=== PATIENT | male | born 1995 | race Caucasian/White ===

== ENCOUNTER → 2016-08-06 | Outpatient (REF) | payer BC | LOC: M LAB REF 09:31 | PROVIDERS: ATTEND Physician Assistant | DX: J02.9 Acute pharyngitis, unspecified (principal) ==

== ENCOUNTER 2019-07-01 11:49 | Emergency (ER) | payer OTHER, BC ==
[~2019-07-01] VITALS: Ht 175.3 cm; Wt 111.0 kg
[2019-07-01] MEDS ORDERED: IBUPROFEN 800 MG TAB PO ONE (14:00)
[2019-07-01] MEDS ORDERED: CYCL5TAB PO (14:00)
[2019-07-01] MEDS ORDERED: LIDOCAINE 5% (LIDODERM) PATCH TD ONE (14:00)
[2019-07-01 14:39] VITALS: BP 138/78
[2019-07-01] MEDS ORDERED: **NOTE PATIENT COMMENT** MISC XX SCH (21:00)
== END 2019-07-01 14:42 | disposition home or self-care (01) ==
LOC: M ED 11:49
DX: S39.012A Strain of muscle, fascia and tendon of lower back, initial encounter (principal); M54.16 Radiculopathy, lumbar region; M62.830 Muscle spasm of back; X50.1XXA Overexertion from prolonged static or awkward postures, initial encounter; Y92.128 Other place in nursing home as the place of occurrence of the external cause; Y93.89 Activity, other specified; Y99.0 Civilian activity done for income or pay; K21.9 Gastro-esophageal reflux disease without esophagitis; Z88.8 Allergy status to other drugs, medicaments and biological substances

== ENCOUNTER → 2020-01-22 | Outpatient (CLI) | payer SELFPAY ==
[~2020-01-22] MED LIST: CYCL5TAB PO
== END ==
LOC: M LABSMTC 14:54
PROVIDERS: ATTEND Family Medicine
DX: Z20.828 Contact with and (suspected) exposure to other viral communicable diseases (principal)

== ENCOUNTER 2020-06-29 16:03 | Emergency (ER) | payer OTHER, BC ==
[~2020-06-29] VITALS: Ht 175.3 cm; Wt 109.9 kg
[2020-06-29] MEDS ORDERED: KETO10TAB PO (19:40)
[2020-06-29] MEDS ORDERED: CYCL-707 PO (19:40)
[2020-06-29 20:09] VITALS: BP 121/79
== END 2020-06-29 20:13 | disposition home or self-care (01) ==
LOC: M ED 16:03
DX: S39.012A Strain of muscle, fascia and tendon of lower back, initial encounter (principal); M62.830 Muscle spasm of back; X50.0XXA Overexertion from strenuous movement or load, initial encounter; Y92.129 Unspecified place in nursing home as the place of occurrence of the external cause; Y93.F2 Activity, caregiving, lifting; Y99.0 Civilian activity done for income or pay; Z88.0 Allergy status to penicillin

== ENCOUNTER → 2023-06-13 | Outpatient (REF) | payer OTHER, BC ==
[~2023-06-13] MED LIST changes: +CYCL-707 PO; +KETO10TAB PO
[2023-06-13 14:50] LABS: HEMOGLOBIN A1c 5.3 % (4.0-6.0)
[2023-06-13 15:07] LABS: ALBUMIN 3.7 G/DL (3.2-5.2); ALKALINE PHOSPHATASE 109 U/L (46-116); ALT/SGPT 61 U/L (7.0-40); AST/SGOT 28 U/L (<34); BILIRUBIN,TOTAL 0.2 MG/DL (0.3-1.2); BLOOD UREA NITROGEN 15 MG/DL (9-23); CALCIUM LEVEL 9.2 MG/DL (8.5-10.1); CARBON DIOXIDE LEVEL 29 MMOL/L (20-31); CHLORIDE LEVEL 107 MMOL/L (98-107); CHOLESTEROL LEVEL 157 MG/DL (<200); CREATININE FOR GFR 0.95 MG/DL (0.70-1.30); GLOMERULAR FILTRATION RATE > 60.0 (>60); GLUCOSE, FASTING 76 MG/DL (60-100); HDL CHOLESTEROL 44.8 MG/DL (>40); LDL CHOLESTEROL 80.4 MG/DL (<100); NON-HDL-C 112.2 MG/DL; POTASSIUM SERUM 4.7 MMOL/L (3.5-5.1); SODIUM LEVEL 138 MMOL/L (136-145); THYROID STIMULATING HORMONE 1.689 uIU/ML (0.55-4.78); TOTAL PROTEIN 7.1 G/DL (5.7-8.2); TRIGLYCERIDES LEVEL 159 MG/DL (<150)
[2023-06-13 15:08] LABS: TOTAL 25(OH) VITAMIN D 29.3 NG/ML (20.0-100.0)
[2023-06-13 15:43] LABS: HIV 1&2 SCREEN NEGATIVE (NEGATIVE)
[2023-06-13 15:51] LABS: HEPATITIS C VIRUS ABY INDEX < 0.02 INDEX (<0.8)
== END ==
LOC: M LAB REF 12:34
PROVIDERS: ATTEND Physician Assistant
DX: Z11.9 Encounter for screening for infectious and parasitic diseases, unspecified (principal); E66.9 Obesity, unspecified; E55.9 Vitamin D deficiency, unspecified